=== PATIENT | female | born 1975 | race Caucasian/White ===

== ENCOUNTER 2024-12-03 06:14 | Day surgery (SDC) | payer OTHER ==
[2024-11-30 10:01] VITALS: BMI 26.5
[2024-12-03] MEDS ORDERED: CEFAZOLIN 2 GM VIAL ONE (06:25)
[2024-12-03] MEDS ORDERED: Heparin 5,000 UNITS/ML VIAL ONE (06:25)
[2024-12-03] MEDS ORDERED: PROPOFOL 20 ML ONE (06:57)
[2024-12-03] MEDS ORDERED: Ondansetron PF 4 MG/2 ML Vial ONE ×2 (06:57→11:29)
[2024-12-03] MEDS ORDERED: Lidocaine 1% PF 5 ML VIAL ONE (06:57)
[2024-12-03] MEDS ORDERED: fentaNYL PF 100 MCG/2 ML SYRINGE ONE ×2 (06:57→08:15)
[2024-12-03] MEDS ORDERED: Rocuronium Bromide 10 MG/ML (10ML VIAL) ONE ×2 (06:57→09:33)
[2024-12-03] MEDS ORDERED: Bupivacaine 0.25% HCL 30 ML VIAL ONE (07:02)
[2024-12-03] MEDS ORDERED: Lidocaine 1% (PF) 30 ML VIAL ONE (07:03)
[2024-12-03] MEDS ORDERED: Lidocaine 2% 6 ML (Jelly) SYR ONE (07:28)
[2024-12-03] MEDS ORDERED: Tranexamic Acid 1,000 MG/10 ML VIAL ONE (08:50)
[2024-12-03] MEDS ORDERED: PHENYLEPHRINE-NS 100 MCG/ML 10 ML SYRINGE ONE (10:28)
[2024-12-03] MEDS ORDERED: SUGAMMADEX SODIUM 200 MG/2 ML VIAL ONE (11:29)
[2024-12-03] MEDS ORDERED: CEFAZOLIN 1 GM VIAL ONE (11:33)
== END 2024-12-03 13:30 | disposition home or self-care (01) ==
LOC: SDC 06:14
PROVIDERS: ATTEND Plastic Surgery
PROC: 0HBV0ZZ Excision of Bilateral Breast, Open Approach (ICD-10-PCS; principal; 2024-12-03)
DX: N62 Hypertrophy of breast (principal); N60.02 Solitary cyst of left breast; N60.01 Solitary cyst of right breast; N60.32 Fibrosclerosis of left breast; D18.01 Hemangioma of skin and subcutaneous tissue; Z98.51 Tubal ligation status; Z90.49 Acquired absence of other specified parts of digestive tract
CPT/HCPCS: 88305; J0169; J0665; J0690; J1100; J1580; J1644; J2250; J2405; J2704; J3010; J3373